=== PATIENT | male | born 1970 | race Caucasian/White ===

== ENCOUNTER 2017-05-05 02:32 | Emergency (ER) | payer OTHER ==
[~2017-05-05] VITALS: Ht 177.8 cm; Wt 83.8 kg
[~2017-05-05 02:32] MED LIST: MOTRIN600 MG PO; PERCOCET 5/31 TABLET PO; PREDNISONE10 MG PO; TOPROL XL25 MG PO; VENTOLIN HFA18 GM IH
[2017-05-05] MEDS ORDERED: FLEXERIL10 MG PO (04:30)
[2017-05-05] MEDS ORDERED: NORCO 5/3251 TABLET PO (04:30)
[2017-05-05] MEDS ORDERED: LIDODERM 5% P1 PATCH TD (04:30)
[2017-05-05 04:31] LABS: COCAINE PRESUMPTIVE POSITIVE (150 ng/mL); PHENCYCLIDINE NEGATIVE (25 ng/mL); THC CANNABINOIDS PRESUMPTIVE POSITIVE (50 ng/mL)
[2017-05-05 04:32] LABS: AMPHETAMINE NEGATIVE (500 ng/mL); BARBITURATES NEGATIVE (200 ng/mL); BENZODIAZEPINES PRESUMPTIVE POSITIVE (150 ng/mL); BUPRENORPHINE PRESUMPTIVE POSITIVE (10 ng/mL); METHADONE NEGATIVE (200 ng/mL); METHAMPHETAMINE NEGATIVE (500 ng/mL); OPIATES (MORPHINE) PRESUMPTIVE POSITIVE (100 ng/mL); OXYCODONE NEGATIVE (100 ng/mL); PROPOXYPHENE NEGATIVE (300 ng/mL); TRICYCLIC ANTIDEPRESSANTS NEGATIVE (300 ng/mL)
[2017-05-05 05:30] VITALS: BP 181/93
[2017-05-05 05:45] LABS: BENZODIAZEPINES, URINE SCREEN Negative (200 ng/mL)
== END 2017-05-05 05:31 | disposition home or self-care (01) ==
LOC: EME 02:32
PROVIDERS: Emergency Medicine
DX: M54.2 Cervicalgia (principal); G89.29 Other chronic pain; F19.10 Other psychoactive substance abuse, uncomplicated; Z76.5 Malingerer [conscious simulation]; F17.200 Nicotine dependence, unspecified, uncomplicated
CPT/HCPCS: 72125; 84999; 99281; 99284

== ENCOUNTER 2017-08-03 22:06 | Emergency (ER) | payer OTHER ==
[~2017-08-03] VITALS: Ht 177.8 cm; Wt 81.2 kg
[~2017-08-03 22:06] MED LIST changes: +FLEXERIL10 MG PO; +LIDODERM 5% P1 PATCH TD; +NORCO 5/3251 TABLET PO
[2017-08-04] MEDS ORDERED: NORCO 5/3251 TABLET PO (00:07)
[2017-08-04 00:30] VITALS: BP 143/97
== END 2017-08-04 00:30 | disposition home or self-care (01) ==
LOC: EME 22:06
DX: S40.012A Contusion of left shoulder, initial encounter (principal); W18.2XXA Fall in (into) shower or empty bathtub, initial encounter; Y93.E1 Activity, personal bathing and showering; J44.9 Chronic obstructive pulmonary disease, unspecified; I10 Essential (primary) hypertension; F17.200 Nicotine dependence, unspecified, uncomplicated
CPT/HCPCS: 73000; 73030

== ENCOUNTER 2017-09-21 13:26 | Inpatient (IN) | payer OTHER ==
[~2017-09-21] VITALS: Ht 177.8 cm; Wt 77.8 kg
[2017-09-21 15:15] LABS: HEMOGLOBIN 14.4 G/DL (12.5-16.6); MCH 30.6 PG (29.0-34.0); MCHC 34.3 G/DL (30.0-36.0); MCV 89.4 FL (86-99); PLATELET COUNT 232 K/uL (156-360); RBC DIS.WIDTH-CV 13.8 % (11.8-14.6); RBC DIS.WIDTH-SD 45.1 % (39-53); WHITE BLOOD COUNT 8.6 K/uL (4.1-10.2)
[2017-09-21 15:25] LABS: CHLORIDE 106 mEq/L (99-109); POTASSIUM 3.4 mEq/L (3.7-5.4); SODIUM 142 mEq/L (136-147)
[2017-09-21 15:26] LABS: GLUCOSE 123 mg/dL (70-99)
[2017-09-21 15:28] LABS: APPEARANCE CLEAR ((CLEAR)); BILIRUBIN NEGATIVE; BLOOD NEGATIVE; COLOR YELLOW ((YELLOW)); GLUCOSE (STRIP) NEGATIVE; KETONES NEGATIVE; LEUKOCYTES NEGATIVE; NITRITE NEGATIVE; PROTEIN (STRIP) NEGATIVE; SPECIFIC GRAVITY 1.011 (1.000-1.030); UROBILINOGEN 0.2 MG/DL (0.2-1.0)
[2017-09-21 15:30] LABS: CREATININE 0.9 mg/dL (0.6-1.3); GFR ESTIMATE (CALCULATED) > 59 mL/min/ (58.99-99999)
[2017-09-21 15:31] LABS: UREA NITROGEN (BUN) 7 mg/dL (9-23)
[2017-09-21 15:36] LABS: AMPHETAMINE NEGATIVE (500 ng/mL); BARBITURATES NEGATIVE (200 ng/mL); BENZODIAZEPINES NEGATIVE (150 ng/mL); BUPRENORPHINE NEGATIVE (10 ng/mL); COCAINE NEGATIVE (150 ng/mL); METHADONE NEGATIVE (200 ng/mL); METHAMPHETAMINE NEGATIVE (500 ng/mL); OPIATES (MORPHINE) PRESUMPTIVE POSITIVE (100 ng/mL); OXYCODONE NEGATIVE (100 ng/mL); PHENCYCLIDINE NEGATIVE (25 ng/mL); PROPOXYPHENE NEGATIVE (300 ng/mL); THC CANNABINOIDS NEGATIVE (50 ng/mL); TRICYCLIC ANTIDEPRESSANTS PRESUMPTIVE POSITIVE (300 ng/mL)
[2017-09-21] MEDS ORDERED: ALPRAZOLAM0.5 MG PO (17:45)
[2017-09-21] MEDS ORDERED: ZOLPIDEM TARTRA10 MG PO (17:47)
[2017-09-21] MEDS ORDERED: ADDERALL20 MG PO (17:48)
[2017-09-21] MEDS ORDERED: MOBIC7.5 MG PO (17:48)
[2017-09-21 20:14] VITALS: BP 114/62
[2017-09-22 07:39] VITALS: BP 127/72
[2017-09-22 16:15] VITALS: BP 108/58
[2017-09-22 21:40] VITALS: BP 106/60
[2017-09-23 07:42] VITALS: BP 133/72
== END 2017-09-23 11:40 | disposition home or self-care (01) | DRG 897 ==
LOC: EME 13:26 → 1WEST 16:27 → EDOF 16:27 → ENRESERV 19:01 → 1WEST 20:10
PROVIDERS: Nurse Practitioner Family
DX: F11.23 Opioid dependence with withdrawal (principal); I10 Essential (primary) hypertension; F17.210 Nicotine dependence, cigarettes, uncomplicated; J45.909 Unspecified asthma, uncomplicated; J43.9 Emphysema, unspecified; E87.6 Hypokalemia; R73.9 Hyperglycemia, unspecified; M25.519 Pain in unspecified shoulder; G89.29 Other chronic pain; M54.2 Cervicalgia; F41.1 Generalized anxiety disorder; M48.02 Spinal stenosis, cervical region; M54.12 Radiculopathy, cervical region
CPT/HCPCS: 80048; 81003; 84999; 85027; 90839; 99281; 99284; J0572; J0574; Q0177